=== PATIENT | male | born 1990 | race African-American/Black ===

== ENCOUNTER 2017-05-12 | Emergency (ER) | payer SELFPAY ==
[~2017-05-12] VITALS: Ht 170.2 cm; Wt 68.0 kg
[2017-05-12 00:12] VITALS: BP 129/69
--- NOTE | 2017-05-12 01:20 | NUR ---
TO ER BED 3
--- NOTE | 2017-05-12 01:30 | NUR ---
Patient being evaluated by DR. VAZQUEZ at bedside.
--- NOTE | 2017-05-12 01:30 | NUR ---
P26Y/M ATIENT PRESENTS TO ED WITH C/O GENERALIZED BODY RASH X 1 DAY . PT STATES RASH TODAY, APPLIED BENEDRY, STILL HAVE ALL OVER THE BODY, NO FEVER . DENIES N/V/D; SKIN IS PINK/WARM/DRY, GENERALIZED BODY RASH NOTED; AAOX4 WITH EVEN AND STEADY GAIT; LUNGS CLEAR BL; HR EVEN AND REGULAR; PT DENIES ANY FEVER, CP, SOB, OR COUGH AT THIS TIME; PATIENT STATES PAIN OF 0/10 AT THIS TIME; VSS; PATIENT POSITIONED FOR COMFORT; HOB ELEVATED; BEDRAILS UP X2; BED DOWN. ER MD MADE AWARE OF PT STATUS.
[2017-05-12] MEDS ORDERED: predniSONE 20 MG TAB PO ONE (02:05)
--- NOTE | 2017-05-12 02:40 | NUR ---
Patient discharged with v/s stable. Written and verbal after care instructions given and explained. Patient alert, oriented and verbalized understanding of instructions. Ambulatory with steady gait. All questions addressed prior to discharge. ID band removed. Patient advised to follow up with PMD. Rx of PREDNISONE 50 MG, BENADRYL 25 MG given. Patient educated on indication of medication including possible reaction and side effects. Opportunity to ask questions provided and answered.
[2017-05-12 02:47] VITALS: BP 101/57
== END 2017-05-12 02:40 | disposition home or self-care (01) ==
LOC: MED
DX: L50.0 Allergic urticaria (principal)
CPT/HCPCS: 99283; J7512; Q0163